=== PATIENT | male | born 1995 | race Asian ===

== ENCOUNTER 2018-06-20 15:55 | Emergency (ER) | payer OTHER ==
[~2018-06-20] VITALS: Ht 170.2 cm; Wt 60.8 kg
[2018-06-20 16:20] VITALS: BP 135/71; Ht 170.2 cm; Wt 60.8 kg
== END 2018-06-20 18:33 | disposition home or self-care (01) ==
LOC: ED 15:55
DX: M27.2 Inflammatory conditions of jaws (principal)